=== PATIENT | male | born 1955 | race Caucasian/White ===

== ENCOUNTER 2021-11-14 06:46 | Inpatient (IN) | payer OTHER ==
[2021-11-14] MEDS ORDERED: NA CHLORIDE 0.9% 1,000 ML ONE ×2 (08:18→10:13)
[2021-11-14] MEDS ORDERED: ONDANSETRON 4 MG/2 ML VIAL ONE (08:18)
[2021-11-14] MEDS ORDERED: KETOROLAC 30 MG/ML INJ ONE (09:01)
[2021-11-14 09:02] LABS: Hematocrit 38.9 % (39.6-49.0); Lymphocytes % 6.1 % (15.3-44.8); MPV 8.2 fL (7.6-11.3); RBC Red Blood Cell Count 4.47 M/uL (4.33-5.43)
[2021-11-14 09:44] LABS: Potassium 3.6 mmol/L (3.5-5.1)
--- NOTE | 2021-11-14 10:16 | ER ---
Nurse's Notes [facility] Name: Corbin Keith Age: 66 yrs Sex: Male : 1955 Arrival Date: 11/14/2021 Time: 06:49 Bed 19 Private MD: Diagnosis: Altered mental status, unspecified;Hypo-osmolality and hyponatremia;Opioid use, unspecified with withdrawal Presentation: 11/14 06:49 Chief complaint: EMS states: Report patient c/o chronic back pain ,body cramping, and ag7 he is out of medication. Coronavirus screen: Client denies travel out of the [place] in the last 14 days. At this time, the client does not indicate any symptoms associated with coronavirus-19. Ebola Screen: Patient negative for fever greater than or equal to 101.5 degrees Fahrenheit, and additional compatible Ebola Virus Disease symptoms Patient denies exposure to infectious person. Patient denies travel to an Ebola-affected area in the 21 days before illness onset. Initial Sepsis Screen: Does the patient meet any 2 criteria? No. Patient's initial sepsis screen is negative. Does the patient have a suspected source of infection? No. Patient's initial sepsis screen is negative. Risk Assessment: Do you want to hurt yourself or someone else? Patient reports no desire to harm self or others. Onset of symptoms was November 14, 2021. 06:49 Method Of Arrival: EMS: [facility] 7 06:49 Acuity: [facility] 3 ag7 Triage Assessment: 06:55 General: Appears in no apparent distress. Behavior is calm, cooperative, appropriate ag7 for age. Pain: Complains of pain in back Pain does not radiate. Pain currently is 10 out of 10 on a pain scale. Quality of pain is described as aching, sharp, Pain began suddenly, Is chronic. Neuro: No deficits noted. Cardiovascular: No deficits noted. Respiratory: No deficits noted. Historical: - Allergies: 06:52 No Known Allergies; ag7 - Home Meds: 06:52 Atenolol Oral [Active]; gabapentin oral [Active]; Hydrocodone-Acetaminophen Oral ag7 [Active]; - PMHx: 06:52 Chronic back pain; Hypertensive disorder; Neuropathy; ag7 - PSHx: 06:52 BACK SURGERY; ag7 - Immunization history:: Adult Immunizations up to date, Client reports having NOT received the Covid vaccine. Flu vaccine is not up to date. Patient has never been vaccinated. - Social history:: Smoking status: Patient denies any tobacco usage or history of. Patient/guardian denies using alcohol, street drugs. Screenin:55 Abuse screen: Denies threats or abuse. Nutritional screening: No deficits noted. ag7 Tuberculosis screening: No symptoms or risk factors identified. Fall Risk No fall in past 12 months (0 pts). No secondary diagnosis (0 pts). No IV (0 pts). Ambulatory Aid- None/Bed Rest/Nurse Assist (0 pts). Gait- Normal/Bed Rest/Wheelchair (0 pts) Mental Status- Oriented to own ability (0 pts). Total Venegas Fall Scale indicates No Risk (0-24 pts). Assessment: 07:03 Reassessment: pt c/o nauseousness when call light answered. emesis basin provided. tw2 provider notified. 07:39 Reassessment: provider at bedside at this time. tw2 09:02 Reassessment: Patient and/or family updated on plan of care and expected duration. Pain tw2 level reassessed. Patient is alert, oriented x 3, equal unlabored respirations, skin warm/dry/pink. pt is still moaning audibly at this time. medicated as per ordered. will continue to monitor. pt states "i just want to sleep, i havent slept in 4 days". 11:22 Reassessment: Patient appears in no apparent distress at this time. Patient and/or tw2 family updated on plan of care and expected duration. Pain level reassessed. Vital Signs: 06:49 BP 142 / 69; Pulse 65; Resp 20 S; Temp 98.2(O); Pulse Ox 99% on R/A; Weight 113.4 kg ag7 (R); Height 5 ft. 11 in. (180.34 cm) (R); Pain 10/10; 09:02 BP 138 / 71; Pulse 71; Resp 19; Pulse Ox 99% on R/A; tw2 10:00 BP 141 / 108; Pulse 69; Resp 17; Pulse Ox 97% on R/A; tw2 11:21 BP 143 / 110; Pulse 64; Resp 17; Pulse Ox 95% on R/A; tw2 12:00 BP 115 / 50; Pulse 82; Resp 17; Pulse Ox 98% on R/A; tw2 13:00 BP 90 / 73 Supine; Pulse 82; Resp 17; Pulse Ox 99% on R/A; tw2 14:10 BP 162 / 73; Pulse 70; Resp 17; Pulse Ox 97% on R/A; tw2 06:49 Body Mass Index 34.87 (113.40 kg, 180.34 cm) ag7 ED Course: 06:49 Patient arrived in ED. ag7 06:52 Triage completed. ag7 07:03 Bed in low position. Call light in reach. teletypesetter monitor on. Pulse ox on. tw2 07:10 Ofe Harvey RN is Primary Nurse. tw2 07:31 Bossman Wetzel MD is Attending Physician. kdr 08:47 Inserted saline lock: 20 gauge in right antecubital area, using aseptic technique. tw2 Blood collected. 10:14 Ayush Zuniga is Hospitalizing Provider. kdr 14:12 Arm band placed on. tw2 14:26 Awaiting lab results, Awaiting: prior to room assignment for admission. tw2 15:49 No provider procedures requiring assistance completed. Patient admitted, IV remains in tw2 place. Administered Medications: 08:45 Drug: NS 0.9% 1000 ml Route: IV; Rate: 1 bolus; Site: right antecubital; tw2 11:00 Follow up: Response: No adverse reaction; IV Status: Completed infusion; IV Intake: tw2 1000ml 08:47 Drug: Zofran (Ondansetron) 4 mg Route: IVP; Site: right antecubital; tw2 14:12 Follow up: Response: No adverse reaction; Nausea is decreased tw2 08:57 Drug: Ketorolac 15 mg Route: IVP; Site: right antecubital; tw2 09:30 Follow up: Response: No adverse reaction tw2 10:03 Not Given (md cates): NS 0.45 % with KCl 20 mEq/L 1000 ml IV at 125 ml/hr once ss 10:11 Drug: NS 0.9% 1000 ml Route: IV; Rate: 125 ml/hr; Site: right antecubital; tw2 16:22 Follow up: IV Status: Infusion continued upon admission tw2 Intake: 11:00 IV: 1000ml; Total: 1000ml. tw2 Outcome: 10:16 Decision to Hospitalize by Provider. kdr 15:49 Admitted to Med/surg accompanied by tech, via wheelchair, room 405, with chart, Report tw2 called to KENNETH [facility] 16:22 Condition: stable tw2 16:22 Patient left the ED. tw2 Signatures: Bossman Wetzel MD MD kdr Ofe Harvey RN RN tw2 Janet Orozco RN RN ag7 Analilia Ortega RN ss Corrections: (The following items were deleted from the chart) 10:42 09:02 Pulse 71bpm; Resp 19bpm; Pulse Ox 99% RA; tw2 tw2 11:22 09:02 BP 141 / 108; Pulse 69bpm; Resp 17bpm; Pulse Ox 97% RA; tw2 tw2
--- NOTE | 2021-11-14 10:16 | EDPHYS ---
Physician Documentation [facility] Name: Corbin Keith Age: 66 yrs Sex: Male : 1955 Arrival Date: 11/14/2021 Time: 06:49 Bed 19 Private MD: ED Physician Bossman Wetzel HPI: 11/14 13:35 This 66 yrs old Male presents to ER via EMS with complaints of Back Pain. kdr 13:35 Patient presents to the ED complaining of medication shortage for the last 4 days. He kdr states he has been on Hurley 3 times daily for some years. He has since located locally here and has not been able to get a refill of his narcotics. Patient appears slow in mentation and somewhat altered. He also states he has been unable to eat or drink in the last few days. He has not had any recent physician visits. He states that he has an appointment to see Dr. Webb on Friday.. Onset: The symptoms/episode began/occurred gradually, 4 day(s) ago. Severity of symptoms: At their worst the symptoms were mild in the emergency department the symptoms are unchanged. The patient has not experienced similar symptoms in the past. The patient has not recently seen a physician. Historical: - Allergies: 06:52 No Known Allergies; ag7 - Home Meds: 06:52 Atenolol Oral [Active]; gabapentin oral [Active]; Hydrocodone-Acetaminophen Oral ag7 [Active]; - PMHx: 06:52 Chronic back pain; Hypertensive disorder; Neuropathy; ag7 - PSHx: 06:52 BACK SURGERY; ag7 - Immunization history:: Adult Immunizations up to date, Client reports having NOT received the Covid vaccine. Flu vaccine is not up to date. Patient has never been vaccinated. - Social history:: Smoking status: Patient denies any tobacco usage or history of. Patient/guardian denies using alcohol, street drugs. ROS: 13:35 Constitutional: Negative for fever, chills, and weight loss, Eyes: Negative for injury, kdr pain, redness, and discharge, ENT: Negative for injury, pain, and discharge, Neck: Negative for injury, pain, and swelling, Cardiovascular: Negative for chest pain, palpitations, and edema, Respiratory: Negative for shortness of breath, cough, wheezing, and pleuritic chest pain, Abdomen/GI: Negative for abdominal pain, nausea, vomiting, diarrhea, and constipation, : Negative for injury, bleeding, discharge, and swelling, MS/Extremity: Negative for injury and deformity, Skin: Negative for injury, rash, and discoloration, Neuro: Negative for headache, weakness, numbness, tingling, and seizure activity. Psych: Negative for depression, anxiety, suicide ideation, homicidal ideation, and hallucinations, Allergy/Immunology: Negative for hives, rash, and allergies, Endocrine: Negative for neck swelling, polydipsia, polyuria, polyphagia, and marked weight changes, Hematologic/Lymphatic: Negative for swollen nodes, abnormal bleeding, and unusual bruising. 13:35 Back: Positive for pain at rest, pain with movement, Negative for injury or acute deformity, decreased range of motion. Exam: 13:35 Constitutional: This is a well developed, well nourished patient who is awake, alert, kdr and in no acute distress. Head/Face: Normocephalic, atraumatic. Eyes: Pupils equal round and reactive to light, extra-ocular motions intact. Lids and lashes normal. Conjunctiva and sclera are non-icteric and not injected. Cornea within normal limits. Periorbital areas with no swelling, redness, or edema. Neck: Trachea midline, no thyromegaly or masses palpated, and no cervical lymphadenopathy. Supple, full range of motion without nuchal rigidity, or vertebral point tenderness. No Meningismus. Chest/axilla: Normal chest wall appearance and motion. Nontender with no deformity. No lesions are appreciated. Cardiovascular: Regular rate and rhythm with a normal S1 and S2. No gallops, murmurs, or rubs. Normal PMI, no JVD. No pulse deficits. Respiratory: Lungs have equal breath sounds bilaterally, clear to auscultation and percussion. No rales, rhonchi or wheezes noted. No increased work of breathing, no retractions or nasal flaring. Abdomen/GI: Soft, non-tender, with normal bowel sounds. No distension or tympany. No guarding or rebound. No evidence of tenderness throughout. Back: No spinal tenderness. No costovertebral tenderness. Full range of motion. Skin: Warm, dry with normal turgor. Normal color with no rashes, no lesions, and no evidence of cellulitis. 13:35 ENT: Mouth: Oral mucosa: dry. Vital Signs: 06:49 BP 142 / 69; Pulse 65; Resp 20 S; Temp 98.2(O); Pulse Ox 99% on R/A; Weight 113.4 kg ag7 (R); Height 5 ft. 11 in. (180.34 cm) (R); Pain 10/10; 09:02 BP 138 / 71; Pulse 71; Resp 19; Pulse Ox 99% on R/A; tw2 10:00 BP 141 / 108; Pulse 69; Resp 17; Pulse Ox 97% on R/A; tw2 11:21 BP 143 / 110; Pulse 64; Resp 17; Pulse Ox 95% on R/A; tw2 12:00 BP 115 / 50; Pulse 82; Resp 17; Pulse Ox 98% on R/A; tw2 13:00 BP 90 / 73 Supine; Pulse 82; Resp 17; Pulse Ox 99% on R/A; tw2 14:10 BP 162 / 73; Pulse 70; Resp 17; Pulse Ox 97% on R/A; tw2 06:49 Body Mass Index 34.87 (113.40 kg, 180.34 cm) ag7 MDM: 10:16 Patient medically screened. kdr 13:35 Data reviewed: vital signs, nurses notes, lab test result(s), radiologic studies. kdr Counseling: I had a detailed discussion with the patient and/or guardian regarding: the historical points, exam findings, and any diagnostic results supporting the discharge/admit diagnosis, the presence of at least one elevated blood pressure reading (>120/80) during this emergency department visit, lab results, radiology results, the need for further work-up and treatment in the hospital. 11/14 07:47 Order name: CBC with Diff; Complete Time: 09:32 kdr 11/14 07:47 Order name: Chem 7; Complete Time: 10:03 kdr 11/14 11:32 Order name: COVID-19 SARS RT PCR (Document "Date of Onset" if Symptomatic) bd 11/14 13:30 Order name: Urinalysis W/Microscopic EDCO 11/14 13:30 Order name: Blood Culture EDCO 11/14 08:51 Order name: IV Start; Complete Time: 08:51 tw2 Administered Medications: 08:45 Drug: NS 0.9% 1000 ml Route: IV; Rate: 1 bolus; Site: right antecubital; tw2 11:00 Follow up: Response: No adverse reaction; IV Status: Completed infusion; IV Intake: tw2 1000ml 08:47 Drug: Zofran (Ondansetron) 4 mg Route: IVP; Site: right antecubital; tw2 14:12 Follow up: Response: No adverse reaction; Nausea is decreased tw2 08:57 Drug: Ketorolac 15 mg Route: IVP; Site: right antecubital; tw2 09:30 Follow up: Response: No adverse reaction tw2 10:03 Not Given (md cates): NS 0.45 % with KCl 20 mEq/L 1000 ml IV at 125 ml/hr once ss 10:11 Drug: NS 0.9% 1000 ml Route: IV; Rate: 125 ml/hr; Site: right antecubital; tw2 16:22 Follow up: IV Status: Infusion continued upon admission tw2 Disposition Summary: 11/14/21 10:16 Hospitalization Ordered Hospitalization Status: Inpatient Admission kdr Provider: Ayush Zuniga [facility]dr [facility] kdr Condition: Fair kdr Problem: new kdr Symptoms: have improved kdr Bed/Room Type: Standard kdr Room Assignment: 405(11/14/21 15:41) dw Diagnosis - Altered mental status, unspecified kdr - Hypo-osmolality and hyponatremia kdr - Opioid use, unspecified with withdrawal kdr Forms: - Medication Reconciliation Form kdr - SBAR form kdr Signatures: Dispatcher [employer] Smiley Sheffield RN RN dw Bossman Wetzel MD MD kdr Ofe Harvey RN RN tw2 Janet Orozco RN RN ag7 Analilia Ortega RN ss Corrections: (The following items were deleted from the chart) 15:41 10:16 kdr dw
--- NOTE | 2021-11-14 13:36 | P.HP ---
Certification for Inpatient Patient admitted to: Inpatient With expected LOS: >2 Midnights Practitioner: I am a practitioner with admitting privileges, knowledge of patient current condition, hospital course, and medical plan of care. Services: Services provided to patient in accordance with Admission requirements found in Title 42 Section 412.3 of the Code of Federal Regulations Patient History Date of Service: 11/14/21 Reason for admission: Backpain History of Present Illness: 66-year-old gentleman with a history of chronic back pain and hypertension presented to the emergency department with a complaint of back pain which has gotten progressively worse over the past 1 week. He is on a chronic hydrocodone therapy for the back pain, hydrocodone was started about 1 month ago. Before that his pain was being managed with tramadol. Patient also complaining of spasms in his arms and legs and difficulty moving. He denied any fever or chills. He denied any nausea vomiting or diarrhea. He denied any cough. Blood work done in the emergency department demonstrated hyponatremia and leukocytosis. UA not done yet, COVID-19 test is pending. Patient with uncontrolled pain. He reports he ran out of his pain medication about 1 week ago. He just established care with a pain management physician in [place]. Patient is hospitalized for further management. - Past Medical/Surgical History -: Chronic back pain -: Hypertension -: Obesity -: Back surgery - Family History Father -: Cancer - Social History Smoking Status: Never smoker Alcohol use: No CD- Drugs: No Place of Residence: Home Review of Systems Other: Except as documented, all other systems reviewed and negative. Physical Examination - Physical Exam General: Alert, Oriented x3, Mild distress (Due to pain) HEENT: Atraumatic, Normocephalic, PERRLA, Mucous membr. moist/pink, EOMI, Sclerae nonicteric Neck: Supple, JVD not distended Respiratory: Clear to auscultation bilaterally, Normal air movement Cardiovascular: Regular rate/rhythm, Normal S1 S2, No murmurs, Edema (1+ bilateral lower extremity edema) Capillary refill: <2 Seconds Gastrointestinal: Normal bowel sounds, Soft and benign, Non-distended, No tenderness Musculoskeletal: No swelling, No tenderness Integumentary: No rashes, No cyanosis Neurological: Normal speech, Normal strength at 5/5 x4 extr, Cranial nerves 3-12 intact Lymphatics: No axilla or inguinal lymphadenopathy - Studies Laboratory Data (last 24 hrs) 11/14/21 08:47: Sodium 123 L, Potassium 3.6, BUN 11, Creatinine 0.69, Glucose 168 H 11/14/21 08:47: WBC 16.9 H, Hgb 13.9, Hct 38.9 L, Plt Count 230 Assessment and Plan - Problems (Diagnosis) (1) Hyponatremia Current Visit: Yes Status: Acute (2) Leukocytosis Current Visit: Yes Status: Acute (3) Chronic back pain Current Visit: Yes Status: Acute (4) Hypertension Current Visit: Yes Status: Acute - Plan Admit patient to the medical floor. The etiology of hyponatremia unknown. Hyponatremia may be contributing to patient's muscle spasms. Start aggressive IV normal saline hydration. Monitor BMP every 6 hours to follow sodium level. Nephrology consulted to assist with management. Obtain UA and blood cultures given leukocytosis. Antibiotics pending results. Supportive measures with muscle relaxant and [place]. Monitor CBC to follow leukocytosis. - Advance Directives Does patient have a Living Will: No Does patient have a Durable POA for Healthcare: No
[2021-11-14] MEDS ORDERED: ONDANSETRON 4 MG/2 ML VIAL IV PRN (16:35)
[2021-11-14] MEDS ORDERED: ACETAMINOPHEN 500 MG TAB PO PRN (16:35)
[2021-11-14] MEDS: NA CHLORIDE 0.9% 1,000 ML IV SCH (16:35)
[2021-11-14 17:23] LABS: Magnesium 1.7 mg/dL (1.8-2.4); Potassium 3.5 mmol/L (3.5-5.1)
[2021-11-14] MEDS: ENOXAPARIN 40 MG/0.4 ML SQ SCH (17:37)
[2021-11-14] MEDS: CALCIUM CARBONATE CHEW 500MG TAB PO PRN ×2 (18:48→20:42)
[2021-11-14] MEDS: CYCLOBENZAPRINE 10 MG TAB PO PRN (20:45)
[2021-11-14] MEDS: HYDROCODONE/APAP 5/325 MG TAB PO PRN (20:46)
[2021-11-14 23:14] LABS: Potassium 3.5 mmol/L (3.5-5.1)
[2021-11-15] MEDS: NA CHLORIDE 0.9% 1,000 ML IV SCH ×3 (00:44→17:26)
[2021-11-15] MEDS: MORPHINE 2 MG/ML SYR IV PRN ×4 (01:51→22:15)
[2021-11-15 04:06] LABS: Absolute Lymphocytes (CBC) 1.1 K/uL (0.7-4.9); Hematocrit 33.4 % (39.6-49.0); MPV 8.3 fL (7.6-11.3); RBC Red Blood Cell Count 3.95 M/uL (4.33-5.43)
[2021-11-15 04:30] LABS: Magnesium 1.5 mg/dL (1.8-2.4); Phosphorus 2.9 mg/dL (2.5-4.9); Potassium 3.2 mmol/L (3.5-5.1); Thyroid Stimulating Hormone 0.303 uIU/mL (0.360-3.740)
[2021-11-15 04:31] LABS: CKMB Creatine Kinase MB 10.2 ng/mL (1.0-3.6)
[2021-11-15] MEDS: HYDROCODONE/APAP 5/325 MG TAB PO PRN ×2 (05:02→20:27)
[2021-11-15] MEDS: ENOXAPARIN 40 MG/0.4 ML SQ SCH (08:28)
[2021-11-15] MEDS: CALCIUM CARBONATE CHEW 500MG TAB PO PRN ×4 (10:32→22:26)
[2021-11-15 10:58] LABS: Potassium 2.9 mmol/L (3.5-5.1)
[2021-11-15] MEDS ORDERED: POTASSIUM CL SA 10 MEQ TAB PO ONE ×2 (11:12→21:00)
[2021-11-15] MEDS ORDERED: POTASSIUM CL 40 MEQ in NA CHLORIDE 0.9% 500 ML IV SCH (12:00)
--- NOTE | 2021-11-15 12:42 | P.CNS ---
Date of Consult: 11/15/21 Reason for Consult: Hyponatremia Requesting Physician: blanka sahni Chief Complaint: Backpain History of Present Illness: 66M w/ PMHx of Htn & chronic back pain who p/w acute worsening of his back pain, found to have hyponatremia. Serum Na 123 on adm, most recently at 127. He received IV fluids. Allergies No Known Allergies Allergy (Unverified 11/14/21 13:40) Home Medications: Citalopram [Celexa] 40 mg PO DAILY 11/14/21 Gabapentin 300 mg PO TID 11/14/21 Hydrocodone Bit/Acetaminophen [[place]on 10-325 Tablet] 1 each PO TID PRN 11/14/21 Tramadol HCl [Ultram] 50 mg PO TID PRN 11/14/21 - Past Medical/Surgical History -: Chronic back pain -: Hypertension -: Obesity -: Back surgery - Family History Father Medical History: Cancer - Social History Alcohol use: No CD- Drugs: No Place of Residence: Home Review of Systems General: Weakness Eyes: Unremarkable ENT: Unremarkable Respiratory: Unremarkable Cardiovascular: Unremarkable Gastrointestinal: Unremarkable Genitourinary: Unremarkable Musculoskeletal: Back Pain Integumentary: Unremarkable Neurological: Unremarkable Lymphatics: Unremarkable Physical Examination Temp Pulse Resp BP Pulse Ox 98.2 F 70 18 148/63 H 98 11/15/21 08:00 11/15/21 08:00 11/15/21 08:00 11/15/21 08:00 11/15/21 08:00 General: In no apparent distress HEENT: Atraumatic, Normocephalic Neck: Supple, JVD not distended Respiratory: Clear to auscultation bilaterally Cardiovascular: No rubs, No murmurs Gastrointestinal: Soft and benign, No rebound Musculoskeletal: No clubbing, No swelling Integumentary: No warmth Neurological: Normal speech, Normal tone Lymphatics: No axilla or inguinal lymphadenopathy Urinary: Other (No bladder distention) External genitalia: Deferred Rectal: Deferred Conclusions/Impression: # Hyponatremia 2/2 high ADH state from back pain + nausea +/- low solute intake Serum Na 123 on adm, improved to 127 Urine chem c/w high ADH state BNP elevated. Cont NS gtt for now. He is a vegetarian. Advised on adeq po solid food intake TID. # Hypokalemia KCl repletion ongoing # HypoMg Mg repletion ongoing # Chronic back pain Per primary team # Htn BP above goal Start Amlodipine 5 mg po daily Pain control
[2021-11-15] MEDS ORDERED: MAGNESIUM SULFATE 1 gm IVPB 1 GM/100 ML BAG IV ONE (12:45)
--- NOTE | 2021-11-15 12:55 | P.PN ---
Subjective Date of Service: 11/15/21 Chief Complaint: Backpain Patient reports feeling better today. His muscle spasms have resolved. He is ambulatory. He stated his pain is better. Sodium level has not improved. Physical Examination - Vital Signs Temperature: 98.2 F Blood Pressure: 148/63 Pulse: 70 Respirations: 18 Pulse Ox (%): 98 - Physical Exam General: Alert, In no apparent distress, Oriented x3 HEENT: PERRLA, Mucous membr. moist/pink, EOMI, Sclerae nonicteric Neck: Supple, JVD not distended Respiratory: Clear to auscultation bilaterally, Normal air movement Cardiovascular: Regular rate/rhythm, Normal S1 S2, No murmurs, Edema (Bilateral lower extremities.) Capillary refill: <2 Seconds Gastrointestinal: Normal bowel sounds, Soft and benign, Non-distended, No tenderness Musculoskeletal: No tenderness Integumentary: No rashes, No erythema, No cyanosis Neurological: Normal speech, Normal strength at 5/5 x4 extr, Cranial nerves 3-12 intact Assessment And Plan - Current Problems (Diagnosis) (1) Hyponatremia Current Visit: Yes Status: Acute (2) Leukocytosis Current Visit: Yes Status: Acute (3) Chronic back pain Current Visit: Yes Status: Acute (4) Hypertension Current Visit: Yes Status: Acute - Plan The etiology of hyponatremia unknown. I suspect SIADH since sodium level has not improved with IV normal saline. Nephrology input appreciated. Replete potassium, keep potassium level around 4 given that he experienced muscle spasms. Continue IV normal saline hydration. Monitor BMP every 6 hours to follow sodium level. We will also restrict free water. Nephrology is following and assisting with management. UA is still uncollected. Blood cultures. Antibiotics pending UA result. Supportive measures with muscle relaxant and [place]. Monitor CBC to follow leukocytosis.
[2021-11-15 15:29] LABS: Urine Appearance Clear (Clear); Urine Bilirubin Negative (Negative); Urine Blood Trace-lysed (Negative); Urine Color Yellow (Yellow); Urine Glucose Negative (Negative); Urine Protein Negative (Negative); Urine Urobilinogen 0.2 mg/dL (0.2-1.0)
[2021-11-15 16:34] LABS: Urine Microscopic Reflex ORDER UMIC
[2021-11-15 16:54] LABS: Urine Bacteria <20 /HPF (NONE SEEN); Urine RBC <5 /HPF (NONE SEEN)
[2021-11-15 17:47] LABS: Potassium 3.3 mmol/L (3.5-5.1)
[2021-11-15] MEDS: CYCLOBENZAPRINE 10 MG TAB PO PRN (20:26)
[2021-11-15 21:53] LABS: Potassium 3.4 mmol/L (3.5-5.1)
[2021-11-16] MEDS: MELATONIN 5 MG TABLET PO PRN (01:55)
[2021-11-16] MEDS: NA CHLORIDE 0.9% 1,000 ML IV SCH ×3 (01:55→21:13)
[2021-11-16] MEDS: HYDROCODONE/APAP 5/325 MG TAB PO PRN (01:56)
[2021-11-16] MEDS: MORPHINE 2 MG/ML SYR IV PRN ×2 (04:54→11:15)
[2021-11-16 05:15] LABS: Magnesium 1.9 mg/dL (1.8-2.4); Phosphorus 2.4 mg/dL (2.5-4.9); Potassium 3.6 mmol/L (3.5-5.1)
[2021-11-16] MEDS ORDERED: POTASSIUM CL SA 10 MEQ TAB PO ONE ×2 (05:52→06:51)
[2021-11-16] MEDS: POTASS/SODIUM PHOSPHATE 1 PKT POWD.PACK PO SCH ×3 (06:04→09:31)
[2021-11-16] MEDS ORDERED: POTASS/SODIUM PHOSPHATE 1 PKT POWD.PACK PO ONE (06:53)
[2021-11-16] MEDS ORDERED: TRAMADOL HCL 50 MG TAB PO PRN (08:26)
[2021-11-16] MEDS: AMLODIPINE 5 MG TAB PO SCH ×2 (09:00→09:15)
[2021-11-16] MEDS: ENOXAPARIN 40 MG/0.4 ML SQ SCH (09:16)
[2021-11-16] MEDS: CALCIUM CARBONATE CHEW 500MG TAB PO PRN ×5 (09:31→20:17)
[2021-11-16 10:30] LABS: Potassium 3.6 mmol/L (3.5-5.1)
--- NOTE | 2021-11-16 11:16 | P.PN ---
Subjective Date of Service: 11/16/21 Chief Complaint: Backpain Subjective: No new changes Physical Examination - Vital Signs Temperature: 98.2 F Blood Pressure: 164/79 Pulse: 77 Respirations: 14 Pulse Ox (%): 98 - Physical Exam General: In no apparent distress HEENT: Atraumatic, Normocephalic Neck: Supple, JVD not distended Respiratory: Clear to auscultation bilaterally Cardiovascular: No rubs, No murmurs Gastrointestinal: Non-distended, No guarding Musculoskeletal: No clubbing Integumentary: No warmth Neurological: Normal speech, Normal tone Lymphatics: No axilla or inguinal lymphadenopathy Urinary: Other (no bladder distention) External genitalia: Deferred Rectal: Deferred Assessment And Plan - Plan # Hyponatremia 2/2 high ADH state from back pain + nausea +/- low solute intake Serum Na 123 on adm, improved to 129 Urine chem c/w high ADH state BNP elevated. Cont NS gtt for now. He is a vegetarian. Advised on adeq po solid food intake TID. # Hypokalemia Improved Monitor/replete prn # HypoMg Improved Monitor/replete prn # HypoPO4 Phos repletion po today # Chronic back pain Per primary team # Htn Cont current BP med regimen Pain control
--- NOTE | 2021-11-16 14:55 | P.PN ---
Subjective Date of Service: 11/16/21 Chief Complaint: Backpain Patient states he feels much better. States his appetite has improved. He also reports his pain is better He stated his muscle spasms have resolved. Sodium level improving slowly. Physical Examination - Vital Signs Temperature: 97.8 F Blood Pressure: 158/86 Pulse: 80 Respirations: 16 Pulse Ox (%): 99 - Physical Exam General: Alert, In no apparent distress, Oriented x3 HEENT: Mucous membr. moist/pink Respiratory: Clear to auscultation bilaterally, Normal air movement Cardiovascular: Regular rate/rhythm, Normal S1 S2 Gastrointestinal: Normal bowel sounds, Soft and benign, Non-distended, No tenderness Musculoskeletal: No swelling Integumentary: No rashes Neurological: Normal strength at 5/5 x4 extr Assessment And Plan - Current Problems (Diagnosis) (1) Hyponatremia Current Visit: Yes Status: Acute (2) Leukocytosis Current Visit: Yes Status: Acute (3) Chronic back pain Current Visit: Yes Status: Acute (4) Hypertension Current Visit: Yes Status: Acute - Plan The etiology of hyponatremia unknown. I suspect SIADH. Nephrology input appreciated. Currently normokalemic Continue IV normal saline hydration. Monitor BMP every 6 hours to follow sodium level. We will also restrict free water. Nephrology is following UA: No evidence of UTI. Blood cultures: No growth to date. Supportive measures with muscle relaxant and pain meds. Etiology of leukocytosis unknown. No evidence of infection Monitor CBC to follow leukocytosis.
[2021-11-16] MEDS: TRAMADOL HCL 50 MG TAB PO PRN ×2 (15:53→20:17)
[2021-11-16] MEDS: GABAPENTIN 300 MG CAP PO SCH (20:18)
[2021-11-16] MEDS ORDERED: MAGNESIUM HYDROXIDE 8% 30 ML PO ONE (21:00)
[2021-11-16] MEDS: CYCLOBENZAPRINE 10 MG TAB PO PRN (21:12)
[2021-11-17] MEDS: MELATONIN 5 MG TABLET PO PRN (00:16)
[2021-11-17] MEDS: TRAMADOL HCL 50 MG TAB PO PRN ×4 (00:16→12:24)
[2021-11-17] MEDS: NA CHLORIDE 0.9% 1,000 ML IV SCH ×3 (00:35→13:10)
[2021-11-17 04:36] LABS: Phosphorus 2.1 mg/dL (2.5-4.9)
[2021-11-17] MEDS: CALCIUM CARBONATE CHEW 500MG TAB PO PRN ×5 (04:44→20:09)
[2021-11-17 04:56] LABS: Potassium 2.4 mmol/L (3.5-5.1)
[2021-11-17] MEDS ORDERED: CALCIUM GLUC 10% INJ 9.3 MEQ in NA CHLORIDE 0.9% 100 ML IV ONE (05:25)
[2021-11-17 05:53] VITALS: BMI 25.0
[2021-11-17] MEDS: POTASS/SODIUM PHOSPHATE 1 PKT POWD.PACK PO SCH ×3 (06:30→09:26)
[2021-11-17] MEDS: KCL 20 MEQ/100 mL IVPB 20 MEQ/100 ML BAG IV SCH ×3 (06:30→11:51)
[2021-11-17] MEDS ORDERED: CALCIUM GLUCONATE 1 GM IVPB 2 GM/100 ML BAG IV ONE (08:00)
[2021-11-17] MEDS: ENOXAPARIN 40 MG/0.4 ML SQ SCH (08:20)
[2021-11-17] MEDS: GABAPENTIN 300 MG CAP PO SCH ×3 (08:21→20:09)
[2021-11-17] MEDS: AMLODIPINE 5 MG TAB PO SCH (08:22)
[2021-11-17] MEDS ORDERED: POTASSIUM CL SA 10 MEQ TAB PO ONE ×2 (14:21→18:32)
--- NOTE | 2021-11-17 14:48 | P.PN ---
Subjective Date of Service: 11/17/21 Chief Complaint: Backpain Patient of uncontrolled generalized bodily pain Hyponatremia resolved but patient has had a multiple electrolyte abnormalities including hypokalemia, hypocalcemia and metabolic acidosis. He was abusing Tums for GERD, about 8 to 10 tablets/day. Physical Examination - Vital Signs Temperature: 98.5 F Blood Pressure: 157/82 Pulse: 77 Respirations: 20 Pulse Ox (%): 98 - Physical Exam General: Alert, In no apparent distress, Oriented x3 HEENT: Mucous membr. moist/pink Neck: JVD not distended Respiratory: Clear to auscultation bilaterally, Normal air movement Cardiovascular: No edema, Regular rate/rhythm, Normal S1 S2 Gastrointestinal: Soft and benign, Non-distended, No tenderness Musculoskeletal: No swelling Neurological: Normal speech, Normal strength at 5/5 x4 extr, Cranial nerves 3-12 intact Assessment And Plan - Current Problems (Diagnosis) (1) Hyponatremia Current Visit: Yes Status: Acute (2) Leukocytosis Current Visit: Yes Status: Acute (3) Chronic back pain Current Visit: Yes Status: Acute (4) Hypertension Current Visit: Yes Status: Acute (5) Hypocalcemia Current Visit: Yes Status: Acute (6) Metabolic acidosis Current Visit: Yes Status: Acute - Plan The etiology of hyponatremia unknown. Probably SIADH. Nephrology input appreciated. Patient with multiple electrolyte abnormalities today. Stopped IV fluid. Sodium level increased by 10 mEq within 18 hours. Continue to monitor BMP. Replete calcium and potassium. Check magnesium level. Nephrology is following UA: No evidence of UTI. Blood cultures: No growth to date. Supportive measures with muscle relaxant and pain meds. Patient prefers tramadol and Tylenol 3. Etiology of leukocytosis unknown. No evidence of infection Check CBC in am. Patient with reduced functional capacity due to pain. Continue PT.
[2021-11-17] MEDS: TRAMADOL HCL 50 MG TAB PO SCH ×2 (15:07→20:09)
--- NOTE | 2021-11-17 15:14 | P.PN ---
Subjective Date of Service: 11/17/21 Chief Complaint: Backpain Subjective Pt admitted with hyponatremia , low phosphorus and Mg sodium improved slowly on IVF, but pt developed hypoklemia Today Na improved to 138 labs today also K 2.4, Phos 2.1 will stop IVF will add ensure pt denied diarrhea will check uric acid will satrtr on daily MG Oxide physical exam General: Awake, NAD, obese HEENT: Atraumatic, Normocephalic Neck: Supple, no elevated JVD Respiratory: Other CTAB. No rales or wheezes Cardiovascular: No rubs, No murmurs Gastrointestinal: Soft and benign, Non-distended Musculoskeletal: No clubbing Integumentary: No warmth Neurological: Normal tone, Sensation intact Lymphatics: No axilla or inguinal lymphadenopathy Urinary: Other (no bladder distention) A/P # Hyponatremia 2/2 high ADH state from back pain + nausea +/- low solute intake Na improved today to 138 will stop IVF will check uric acid TSH 0.3 # Hypokalemia , hypomagnesemia and hypophospahtemia possibly due to hypomagensemia pt with obesity , so unlikely due to poor intake TSH 0.3 pt not on PPI will start daily Mg replacement will check Uric acid # Chronic back pain Per primary team # Htn Cont current BP med regimen Pain control Total time spent 65 minutes including documentation, reviewing labs , placing orders and discussing plan of care with medical staff and pt Physical Examination - Vital Signs Temperature: 98.5 F Blood Pressure: 157/82 Pulse: 77 Respirations: 20 Pulse Ox (%): 98
[2021-11-17] MEDS: MAGNESIUM OXIDE 400 MG TAB PO SCH (20:08)
[2021-11-17] MEDS: CODEINE 30MG/APAP 300MG TAB PO PRN (21:07)
[2021-11-18] MEDS: TRAMADOL HCL 50 MG TAB PO SCH ×4 (01:15→10:04)
[2021-11-18] MEDS: CALCIUM CARBONATE CHEW 500MG TAB PO PRN ×3 (01:19→10:05)
[2021-11-18] MEDS: CODEINE 30MG/APAP 300MG TAB PO PRN (03:25)
[2021-11-18 03:57] LABS: Absolute Lymphocytes (CBC) 1.5 K/uL (0.7-4.9); Hematocrit 32.3 % (39.6-49.0); Lymphocytes % 15.4 % (15.3-44.8); RBC Red Blood Cell Count 3.69 M/uL (4.33-5.43)
[2021-11-18 04:19] LABS: Albumin 2.8 g/dL (3.4-5.0); Phosphorus 3.5 mg/dL (2.5-4.9); Potassium 3.9 mmol/L (3.5-5.1)
[2021-11-18] MEDS: ENOXAPARIN 40 MG/0.4 ML SQ SCH (08:33)
[2021-11-18] MEDS: GABAPENTIN 300 MG CAP PO SCH ×2 (08:33→13:22)
[2021-11-18] MEDS: MAGNESIUM OXIDE 400 MG TAB PO SCH (08:33)
[2021-11-18] MEDS: AMLODIPINE 5 MG TAB PO SCH (08:36)
[2021-11-18] MEDS ORDERED: POTASSIUM CL SA 10 MEQ TAB PO ONE (09:00)
[2021-11-18 09:05] LABS: Magnesium 1.6 mg/dL (1.8-2.4); Phosphorus 3.5 mg/dL (2.5-4.9)
[2021-11-18 09:52] VITALS: O2SAT 98
[2021-11-18] MEDS ORDERED: MAGNESIUM SULFATE 1 gm IVPB 1 GM/100 ML BAG IV ONE (09:52)
--- NOTE | 2021-11-18 09:55 | P.PN ---
Subjective Date of Service: 11/18/21 Chief Complaint: Backpain Subjective Pt admitted with hyponatremia , low phosphorus and Mg sodium improved slowly on IVF, but pt developed hypoklemia Today no overnight events pain is better controlled NA down to 128 , pt stated he drinks 7-8 Pitchers of water daily will restrict fluids to 2 liters daily will add salt tablets physical exam General: Awake, NAD, obese HEENT: Atraumatic, Normocephalic Neck: Supple, no elevated JVD Respiratory: Other CTAB. No rales or wheezes Cardiovascular: No rubs, No murmurs Gastrointestinal: Soft and benign, Non-distended Musculoskeletal: No clubbing Integumentary: No warmth Neurological: Normal tone, Sensation intact Lymphatics: No axilla or inguinal lymphadenopathy Urinary: Other (no bladder distention) A/P # Hyponatremia 2/2 high ADH state from back pain + nausea +/- low solute intake NA down to 128 , pt stated he drinks 7-8 Pitchers of water daily will restrict fluids to 2 liters daily will add salt tablets uric acid slightly low TSH 0.3 # Hypokalemia , hypomagnesemia and hypophospahtemia possibly due to hypomagensemia pt with obesity , so unlikely due to poor intake TSH 0.3 pt not on PPI daily PO Mg replacement # Chronic back pain Per primary team # Htn Cont current BP med regimen Pain control Total time spent 45 minutes including documentation, reviewing labs , placing orders and discussing plan of care with medical staff and pt Physical Examination - Vital Signs Temperature: 97.8 F Blood Pressure: 138/59 Pulse: 86 Respirations: 18 Pulse Ox (%): 98
[2021-11-18] MEDS ORDERED: SODIUM CHLORIDE 1 GM TAB PO SCH (11:00)
--- NOTE | 2021-11-18 12:26 | P.DS ---
Admission Date: 11/14/21 Discharge Date: 11/18/21 Disposition: [facility]/HOME HEALTH CARE Discharge Condition: FAIR Reason for Admission: Backpain - Problems (1) Hyponatremia Current Visit: Yes Status: Acute (2) Leukocytosis Current Visit: Yes Status: Acute (3) Chronic back pain Current Visit: Yes Status: Acute (4) Hypertension Current Visit: Yes Status: Acute (5) Hypocalcemia Current Visit: Yes Status: Acute (6) Metabolic acidosis Current Visit: Yes Status: Acute Brief History of Present Illness: 66-year-old gentleman with a history of chronic back pain and hypertension presented to the emergency department with a complaint of back pain which has gotten progressively worse over the past 1 week. He is on a chronic hydrocodone therapy for the back pain, hydrocodone was started about 1 month ago. Before that his pain was being managed with tramadol. Patient also complaining of spasms in his arms and legs and difficulty with mobility. He denied any fever or chills. He denied any nausea vomiting or diarrhea. He denied any cough. Blood work done in the emergency department demonstrated hyponatremia and leukocytosis. UA negative for UTI, COVID-19 test negative. Patient with uncontrolled pain. He reports he ran out of his pain medication about 1 week ago. He just established care with a pain management physician in [place]. Patient was hospitalized for further management. Hospital Course: Patient with psychogenic polydipsia. Hyponatremia likely secondary to polydipsia. Patient started on IV normal saline and nephrology consulted. Serum sodium level improved but patient developed other electrolyte abnormalities including hypokalemia, metabolic acidosis and hypocalcemia. Nephrology attributes to multiple electrolyte imbalance to hypomagnesemia versus IV normal saline. Electrolyte abnormalities were successfully repleted. Patient noted to have psychogenic dyspnea, states that he drinks about 7-8 pitchers of water in a day. IV fluid discontinued. Patient placed on a fluid restriction. Nephrology also prescribed sodium tablets. UA: No evidence of UTI. Blood cultures: No growth to date. I suspect his muscle spasms were due to electrolyte abnormalities. Muscle spasms were managed with Flexeril. He was also on tramadol for pain control. Patient stated he prefers tramadol to Peck for outpatient pain control. He has an appointment to establish care with a pain management physician tomorrow. Etiology of leukocytosis unknown. No evidence of infection. Leukocytosis resolved. Patient at baseline has decreased functional capacity. He was seen and evaluated by PT who recommended home with home health for PT Vitals have been stable, patient has clinically improved and deemed stable for discharge. Vital Signs/Physical Exam: Temp Pulse Resp BP Pulse Ox 97.8 F 86 18 138/59 L 98 11/18/21 09:55 11/18/21 09:55 11/18/21 10:04 11/18/21 09:55 11/18/21 10:04 General: Alert, In no apparent distress, Oriented x3 HEENT: Mucous membr. moist/pink Neck: JVD not distended Respiratory: Clear to auscultation bilaterally, Normal air movement Cardiovascular: No edema, Regular rate/rhythm Capillary refill: <2 Seconds Gastrointestinal: Normal bowel sounds, Soft and benign, Non-distended Musculoskeletal: No swelling, No tenderness Integumentary: No rashes, No erythema Neurological: Normal strength at 5/5 x4 extr Laboratory Data at Discharge: WBC 9.6 K/uL (4.3-10.9) D 11/18/21 03:04 Hgb 11.6 g/dL (13.6-17.9) L 11/18/21 03:04 Hct 32.3 % (39.6-49.0) L 11/18/21 03:04 Plt Count 210 K/uL (152-406) 11/18/21 03:04 Sodium 128 mmol/L (136-145) L 11/18/21 03:04 Potassium 3.9 mmol/L (3.5-5.1) 11/18/21 03:04 BUN 6 mg/dL (7-18) L 11/18/21 03:04 Creatinine 0.49 mg/dL (0.55-1.3) L 11/18/21 03:04 Glucose 134 mg/dL (74-106) H 11/18/21 03:04 Uric Acid 3.4 mg/dL (3.5-7.2) L 11/18/21 03:04 Phosphorus 3.5 mg/dL (2.5-4.9) 11/18/21 03:04 Phosphorus 3.5 mg/dL (2.5-4.9) D 11/18/21 03:04 Magnesium 1.6 mg/dL (1.8-2.4) L 11/18/21 03:04 Home Medications: Citalopram [Celexa*] 40 mg PO DAILY 11/14/21 Gabapentin 300 mg PO TID 11/14/21 Hydrocodone Bit/Acetaminophen [Peck 10-325 Tablet] 1 each PO TID PRN 11/14/21 Amlodipine [Norvasc*] 5 mg PO DAILY #30 tab 11/18/21 Calcium Carbonate [Tums Regular*] 500 mg PO Q4H PRN tab 11/18/21 Magnesium Oxide [Mag 0X*] 400 mg PO BID #30 tab 11/18/21 Sodium Chloride Tab [Sodium Chloride*] 1 gm PO BIDWM #60 tab 11/18/21 traMADol HCL [Ultram*] 50 mg PO Q4H #24 tab 11/18/21 New Medications: Magnesium Oxide [Mag 0X*] 400 mg PO BID #30 tab Amlodipine [Norvasc*] 5 mg PO DAILY #30 tab Sodium Chloride Tab [Sodium Chloride*] 1 gm PO BIDWM #60 tab traMADol HCL [Ultram*] 50 mg PO Q4H #24 tab Diet: Regular Activity: Fall precautions Followup: NONE,NONE [Primary Care Provider] - 1-2 Weeks ([facility] to schedule an appointment ) Time spent managing pt's care (in minutes): 36
[2021-11-18 12:37] VITALS: BP 155/75; TEMP 98.1
[2021-11-22 23:34] LABS: Vitamin D 1,25-Dihydroxy Total 37 pg/mL (18-72); Vitamin D,1,25-OH2, D2 <8 pg/mL
== END 2021-11-18 13:30 | disposition home health service (06) | DRG 644 ==
LOC: ER 06:46 → ERHOLD 13:21 → 4TH 16:34
PROVIDERS: ADMIT Internal Medicine; ATTEND Internal Medicine
DX: E22.2 Syndrome of inappropriate secretion of antidiuretic hormone (principal); E87.2 Acidosis; E87.6 Hypokalemia; I10 Essential (primary) hypertension; G89.29 Other chronic pain; M54.9 Dorsalgia, unspecified; R63.1 Polydipsia; M62.838 Other muscle spasm; D72.829 Elevated white blood cell count, unspecified; E83.42 Hypomagnesemia; E83.51 Hypocalcemia; E83.39 Other disorders of phosphorus metabolism; E66.9 Obesity, unspecified; Z68.25 Body mass index [BMI] 25.0-25.9, adult; Z20.822 Contact with and (suspected) exposure to COVID-19
CPT/HCPCS: 36415; 80048; 80069; 81003; 81015; 82306; 82550; 82553; 82570; 82652; 83735; 83880; 83935; 83970; 84100; 84132; 84300; 84439; 84443; 84550; 85025; 87040; 96361; 96374; 96375; 97116; 97161; 99285; J0610; J1650; J2270; J2405; J3475; J3480; J7030; J7040; U0003